=== PATIENT | male | born 1985 | race American Indian/Alaskan Native ===

== ENCOUNTER 2018-02-28 14:27 | Emergency (ER) | payer MEDICAID ==
[2018-02-28 15:30] VITALS: BP 143/94
[2018-02-28] MEDS ORDERED: PERCOCET 5/325 PO ONE (19:52)
[2018-02-28] MEDS ORDERED: PERCOCET 5/325 ONE (19:55)
--- NOTE | 2018-02-28 21:17 | Emergency Department Report ---
Abscess Boil HPI - HPI Chief Complaint: Skin/Abscess/Foreign Body Stated Complaint: BODY PAIN/BOIL ON BUTT Time Seen by Provider: 02/28/18 21:11 Duration: 3 Days Location: Other (suprapubic) History: Yes Pain, No Fever, No Purulent Drainage, No Numbness, No Foreign Body , No Previous History, No Insect Bite HPI: 32-year-old -[place] male that recently been diagnosed with diabetes about 6 months ago comes in for complaint of both with the private area for 3 days. Patient reports that it is painful. He denies any drainage. He denies any fever or chills no nausea no vomiting. Patient reports that he is on Humalog 10 units before meals and Lantus 25 units daily at bedtime. Patient reports he is followed by [facility]. He has no known drug allergies. Home Medications: Previous Rx's Medication Instructions Recorded Last Taken Type Cephalexin [Keflex] 500 mg PO Q12H 10 Days #20 capsule 02/28/18 Unknown Rx Ibuprofen [Motrin 800 MG tab] 800 mg PO Q8HR PRN 10 Days #30 02/28/18 Unknown Rx tablet Sulfamethoxazole/Trimethoprim 1 each PO Q12H #20 tablet 02/28/18 Unknown Rx [Bactrim Ds Tablet] Allergies/Adverse Reactions: Allergies Allergy/AdvReac Type Severity Reaction Status Date / Time No Known Allergies Allergy Unverified 02/28/18 15:27 ED Review of Systems ROS: Stated complaint: BODY PAIN/BOIL ON BUTT Other details as noted in HPI Comment: All other systems reviewed and negative Constitutional: denies: chills, fever Skin: lesions (private area) ED Past Medical Hx - Past Medical History Hx Diabetes: Yes - Surgical History Additional Surgical History: KNEE - Social History Smoking Status: Never Smoker Substance Use Type: None - Medications Home Medications: Home Medications Medication Instructions Recorded Confirmed Last Taken Type Cephalexin [Keflex] 500 mg PO Q12H 10 Days #20 capsule 02/28/18 Unknown Rx Ibuprofen [Motrin 800 MG tab] 800 mg PO Q8HR PRN 10 Days #30 02/28/18 Unknown Rx tablet Sulfamethoxazole/Trimethoprim 1 each PO Q12H #20 tablet 02/28/18 Unknown Rx [Bactrim Ds Tablet] ED Abscess Boil Physical Exam - Exam General: Vital signs noted. No distress. Alert and acting appropriately. Size: 3 cm Exam: Yes Tenderness, Yes Fluctuance, Yes Normal Neurologic Exam, Yes Normal Circulation, No Surrounding Cellulites/Erythema, No Lymphangitis, No Crepitation , No Heart Murmur I & D Note - I & D Note I & D Note: DATE OF PROCEDURE:02/28/2018. PREOPERATIVE DIAGNOSES: 1.soft tissue infection. 2. soft tissue infection. POSTOPERATIVE DIAGNOSES: 1. soft tissue infection. Infection appeared to be contained to subcutaneous tissue and there was no evidence of necrotizing soft tissue infection including myonecrosis. OPERATION PERFORMED: Incision and drainage of ..... soft tissue abscess. Provider: Soheila Avalos PA-C. ANESTHESIA: Local with Bupivacaine. DESCRIPTION OF PROCEDURE: The patient was prepped and draped. Seropurulent, somewhat bloody fluid was noted. The infection appeared contained to a golf ball -sized area in the subcutaneous tissues above the fascia. There was no evidence of myonecrosis, penetration of the fascia or significant extent along the fascia of the infection. We cleaned the area with Betadine and then packed the wound .......... Dry dressings were applied. The patient appeared to tolerate the procedure well. ED Course Vital Signs 02/28/18 15:27 Temperature 98.3 F Pulse Rate 117 H Respiratory 18 Rate Blood Pressure 143/94 O2 Sat by Pulse 100 Oximetry Critical care attestation.: If time is entered above; I have spent that time in minutes in the direct care of this critically ill patient, excluding procedure time. ED Medical Decision Making - Medical Decision Making Patient has been evaluated by this provider in fast track. Patient had a suprapubic abscess This provider drained it He was given Percocet for pain management. Patient will be discharged with Keflex and Bactrim. Patient can take ibuprofen 800 mg every 8 hours when necessary for pain management. Discussed the patient to follow up with his primary care provider. ED Disposition Clinical Impression: Abscess, suprapubic Disposition: DC-01 TO HOME OR SELFCARE Is pt being admited?: No Does the pt Need Aspirin: No Condition: Stable Instructions: Abscess (ED) Additional Instructions: Patient antibiotics as prescribed. Pain medication as needed. Please follow up with her primary care provider if symptoms persist or gets worse. Recommend to believe. Ade soap as this is an antimicrobial soap. Prescriptions: Cephalexin [Keflex] 500 mg PO Q12H 10 Days #20 capsule Ibuprofen [Motrin 800 MG tab] 800 mg PO Q8HR PRN 10 Days #30 tablet PRN Reason: Pain, Moderate (4-6) Sulfamethoxazole/Trimethoprim [Bactrim Ds Tablet] 1 each PO Q12H #20 tablet Referrals: PRIMARY CARE, [Primary Care Provider] - 3-5 Days Forms: Accompanied Note
== END 2018-02-28 21:50 | disposition home or self-care (01) ==
LOC: ED 14:27
DX: L02.31 Cutaneous abscess of buttock (principal); E11.9 Type 2 diabetes mellitus without complications

== ENCOUNTER 2021-08-23 10:42 | Emergency (ER) | payer MEDICAID ==
[2021-08-23] MEDS ORDERED: TETANUS,DIPH,PERTUSS(ACELL) VACCINE 0.5 ML SYRINGE IM ONE (10:47)
[2021-08-23 10:51] VITALS: BP 132/86
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
[2021-08-23] MEDS ORDERED: LIDOCAINE (1%) 10 MG/1 ML VIAL 20 ML MDV INFILTRATI ONE (11:11)
[2021-08-23] MEDS ORDERED: ACETAMINOPHEN W/CODEINE 300-30 MG TAB PO ONE (11:15)
--- NOTE | 2021-08-23 12:26 | Emergency Department Report ---
- General Chief Complaint: Extremity Injury, Lower Stated Complaint: RT LEG LACERATION Time Seen by Provider: 08/23/21 10:54 Source: patient, EMS Mode of arrival: Ambulatory Limitations: No Limitations, Other (Pulse ox noted and normal) - Related Data Previous Rx's Medication Instructions Recorded Last Taken Type Ibuprofen [Motrin 800 MG tab] 800 mg PO Q8HR PRN 10 Days #30 02/28/18 Unknown Rx tablet Sulfamethoxazole/Trimethoprim 1 each PO Q12H #20 tablet 02/28/18 Unknown Rx [Bactrim Ds Tablet] cephALEXin [Keflex] 500 mg PO Q12H 10 Days #20 capsule 02/28/18 Unknown Rx Acetaminophen/Codeine [Tylenol 1 tab PO Q6H PRN #8 tab 08/23/21 Unknown Rx /Codeine # 3 tab] Allergies Allergy/AdvReac Type Severity Reaction Status Date / Time No Known Allergies Allergy Unverified 02/28/18 15:27 ED Review of Systems ROS: Stated complaint: RT LEG LACERATION Other details as noted in HPI Constitutional: denies: fever Eyes: denies: eye pain ENT: denies: throat pain Respiratory: denies: cough Cardiovascular: denies: chest pain Endocrine: denies: unexplained weight loss Gastrointestinal: denies: abdominal pain Genitourinary: denies: dysuria Musculoskeletal: as per HPI. denies: back pain Skin: as per HPI Neurological: denies: headache Hematological/Lymphatic: denies: easy bruising ED Past Medical Hx - Past Medical History Hx Diabetes: Yes - Surgical History Additional Surgical History: KNEE - Social History Smoking Status: Never Smoker Substance Use Type: None - Medications Home Medications: Home Medications Medication Instructions Recorded Confirmed Last Taken Type Ibuprofen [Motrin 800 MG tab] 800 mg PO Q8HR PRN 10 Days #30 02/28/18 Unknown Rx tablet Sulfamethoxazole/Trimethoprim 1 each PO Q12H #20 tablet 02/28/18 Unknown Rx [Bactrim Ds Tablet] cephALEXin [Keflex] 500 mg PO Q12H 10 Days #20 capsule 02/28/18 Unknown Rx Acetaminophen/Codeine [Tylenol 1 tab PO Q6H PRN #8 tab 08/23/21 Unknown Rx /Codeine # 3 tab] ED Physical Exam - General Limitations: No Limitations, Other (Pulse ox noted and normal) General appearance: alert, in no apparent distress ED Course Vital Signs 08/23/21 08/23/21 10:49 10:51 Temperature 98.4 F 98.4 F Pulse Rate 109 H 109 H Respiratory 18 18 Rate Blood Pressure 132/86 Blood Pressure 132/86 [Left] O2 Sat by Pulse 98 98 Oximetry - Laceration /Wound Repair Right Lower Leg Wound Location: lower extremity (Right lower leg) Wound's Depth, Shape: linear Wound Explored: no foreign body removed Irrigated w/ Saline (ccs): 240 Betadine Prep?: No Anesthesia: 1% Lidocaine Volume Anesthetic (ccs): 10 Wound Repaired With: sutures Suture Size/Type: 3:0, proline Number of Sutures: 12 Layer Closure?: Yes Deep Layer Suture Size/Type: 3:0 (Vicryl) Number Deep Layer Sutures: 4 Sterile Dressing Applied?: Yes Progress: Patient tolerated well Critical care attestation.: If time is entered above; I have spent that time in minutes in the direct care of this critically ill patient, excluding procedure time. ED Disposition Clinical Impression: Leg laceration Qualifiers: Encounter type: initial encounter Laterality: right Qualified Code(s): S81.811A - Laceration without foreign body, right lower leg, initial encounter Disposition: HOME / SELF CARE / HOMELESS Is pt being admited?: No Condition: Stable Instructions: Laceration Care, Adult, Sutured Wound Care, [id number] Additional Instructions: Keep the wound clean. Have the stitches taken out in 10 days. Return for problems. Follow-up with your regular doctor or the referral doctor for wound check. Prescriptions: Acetaminophen/Codeine [Tylenol /Codeine # 3 tab] 1 tab PO Q6H PRN #8 tab PRN Reason: Pain , Severe (7-10) Referrals: MCKINLEY BALDERRAMA MD [Staff Physician] - 3-5 Days PRIMARY CARE, [Referring] - 3-5 Days
== END 2021-08-23 12:35 | disposition home or self-care (01) ==
LOC: ED 10:42
DX: S81.811A Laceration without foreign body, right lower leg, initial encounter (principal); E11.9 Type 2 diabetes mellitus without complications; W22.8XXA Striking against or struck by other objects, initial encounter; Y93.89 Activity, other specified; Y92.89 Other specified places as the place of occurrence of the external cause; Y99.8 Other external cause status
CPT/HCPCS: 12031; 90471; 90715; 99283; J3490